=== PATIENT | male | born 1990 | race Caucasian/White ===

== ENCOUNTER 2018-04-14 20:12 | Emergency (ER) | payer BC ==
[2018-04-17 02:01] LABS: Chlamydia by PCR Not Detected (NotDetected); GC by PCR Not Detected (NotDetected)
[2018-04-18 19:44] LABS: Chlamydia by PCR Not Detected (NotDetected); GC by PCR Not Detected (NotDetected)
== END 2018-04-14 21:02 | disposition home or self-care (01) ==
LOC: EDBD 20:12 → SCSER 20:12
DX: K62.89 Other specified diseases of anus and rectum (principal); I10 Essential (primary) hypertension
CPT/HCPCS: 87491; 87591; 99283